=== PATIENT | female | born 1955 | race Caucasian/White ===

== ENCOUNTER 2020-06-27 06:39 | Outpatient (CLI) | payer MEDICARE ==
[2020-06-27 09:47] LABS: Hemoglobin 12.4 g/dL (12.0-16.0); Mean Corpuscular HGB CONC 31.6 G/DL (32.0-36.0); Mean Corpuscular Hemoglobin 28.7 PG (27.0-33.0); Mean Corpuscular Volume 90.7 fl (80.0-100.0); Mean Platelet Volume 11.1 fl (7.4-10.4); Platelet Count 311 10x3/uL (130-400); RBC Distribution Width 14.6 % (11.5-14.5); Red Blood Cell (RBC) Count 4.32 10x6/uL (3.90-5.20); White Blood Cell (WBC) Count 7.8 10x3/uL (4.5-11.0)
[2020-06-27 10:07] LABS: PTT 29.1 sec (22.0-33.0); Prothrombin Time 10.9 sec (9.5-12.1)
[2020-06-27 10:21] LABS: Anion Gap 15 mmol/L (10-20); BUN (Urea Nitrogen) 26 mg/dL (9.8-20.1); Calc. Creatinine Clearance 0 mL/min (70-130); Calcium 9.5 mg/dL (7.8-10.44); Carbon Dioxide 25 mmol/L (23-31); Chloride 106 mmol/L (98-107); Glucose 165 mg/dL (80-115); Sodium 142 mmol/L (136-145)
[2020-06-27 22:09] LABS: SARS-CoV-2 MS2 Positive; SARS-CoV-2 N Gene Negative; SARS-CoV-2 S Gene Negative; SARS-CoV-2 by NAA Not Detected (NotDetected); SARS-CoV-2 orf1ab Negative
== END 2020-06-27 06:40 | disposition home or self-care (01) ==
LOC: LABBT 06:39
PROVIDERS: ATTEND Urology
DX: Z01.818 Encounter for other preprocedural examination (principal); Z20.822 Contact with and (suspected) exposure to COVID-19; N20.2 Calculus of kidney with calculus of ureter; R82.994 Hypercalciuria; E21.0 Primary hyperparathyroidism; N39.46 Mixed incontinence; E11.9 Type 2 diabetes mellitus without complications
CPT/HCPCS: 80048; 85027; 85610; 85730; U0003; 87635

== ENCOUNTER 2020-06-29 06:07 | Day surgery (SDC) | payer MEDICARE ==
[2020-06-22 14:01] VITALS: BMI 35.4
[2020-06-29] MEDS ORDERED: Levofloxacin 500 mg/D5W 100 ml Premix Bag ONE (07:11)
--- NOTE | 2020-06-29 07:39 | RAD ---
Abdomen one view HISTORY: Renal stone. Preop. FINDINGS: No comparison. Visualized bowel gas pattern is nonspecific. Far left abdomen and the hemidiaphragms are excluded fro m the image. Double pigtail stent projects over the course of the left ureter. An oval calcification at the expect ed location of the left ureteropelvic junction, immediately medial to the stent at this location, is 1.1 cm length by 0.6 cm width (not allowing for magnification). Tiny grouped calcifications overly ing the inferior pole of the left renal shadow likely representing additional renal calculi. Phlebolith noted within the left lower pelvis. IMPRESSION : Left ureteral stent. Left renal calculi.
[2020-06-29] MEDS ORDERED: Fentanyl 100 MCG/2 ML VIAL ONE (08:16)
[2020-06-29] MEDS ORDERED: Iothalamate Meglumine 60% 50 ML VIAL FS ONE (08:35)
[2020-06-29] MEDS ORDERED: Lidocaine 1% PF 5 ML VIAL ONE (09:14)
[2020-06-29] MEDS ORDERED: Ketorolac Tromethamine 30 MG/ML VIAL ONE (09:14)
[2020-06-29] MEDS ORDERED: Ondansetron PF 4 MG/2 ML Vial ONE (09:14)
[2020-06-29] MEDS ORDERED: ePHEDrine 50 MG/ML VIAL ONE (09:14)
[2020-06-29] MEDS ORDERED: PROPOFOL 200 MG/20 ML VIAL ONE (09:14)
[2020-06-29] MEDS ORDERED: PHENYLEPHRINE-NS 100 MCG/ML 10 ML SYRINGE ONE (09:14)
[2020-06-29] MEDS ORDERED: Phenazopyridine HCl 100 MG TAB ONE (09:49)
[2020-06-29] MEDS ORDERED: Oxybutynin 5 MG TAB ONE (09:49)
--- NOTE | 2020-06-29 10:15 | OP ---
DATE OF PROCEDURE: 06/29/2020 PCP: Dr. Trudi Paz. PREOPERATIVE DIAGNOSIS: 65-year-old female with 9 x 7 mm left proximal ureteral calculi, nonobstructing left lower pole renal calculi x2, dimensions measuring about 6-8 mm, right punctate renal lithiasis. POSTOPERATIVE DIAGNOSIS: 65-year-old female with 9 x 7 mm left proximal ureteral calculi, nonobstructing left lower pole renal calculi x2, dimensions measuring about 6-8 mm, right punctate renal lithiasis. PROCEDURE PERFORMED: Cystoscopy, left ureteroscopy, laser lithotripsy, basket extraction, stent exchange, 6 x 28, ureteroscopy, retrograde pyelogram. ANESTHESIA: LMA general. COMPLICATIONS: None apparent. SPECIMEN: Stone fragments for chemical analysis. INTRAOPERATIVE FINDINGS: Left proximal UPJ stone with stone nidus adherent to the ureteropelvic mucosa with some bullous edema. Left lower pole calculi multiple, most of which are punctate, the largest about 4-5 mm. INDICATIONS FOR PROCEDURE AND HISTORY: Ms. Agustin is a pleasant 65-year-old female whom I seen at [facility] as she presented with left flank pain. CT demonstrated a large 9 mm proximal ureteral calculi and she underwent stent placement. She presents today for definitive treatment. Risks and complication of the procedure have been discussed with her in detail including but not limited to, bleeding, pain, infection, injury to adjacent organs, [id number]-raurot injury, stricture formation. All questions answered to her satisfaction. She desired to proceed. PROCEDURE IN DETAIL: The patient was taken to the operating room, placed in a dorsal lithotomy position with the genital area prepped and draped in the usual surgical sterile fashion. Bilateral GHAZAL hose, SCDs and broad-spectrum antibiotics were provided. A 22-Chilean cystoscope was utilized for cystoscopy and a previously placed ureteral stent was visualized and removed to the level of the meatus. On preoperative KUB, the stone nidus is easily visualized. Large left renal pelvic UPJ stone, and left lower pole stone nidus. The stone was removed to the level of the meatus and a 0.035 Sensor wire was placed into the left upper pole. At this time, a 10-Chilean dual-lumen access sheath was placed. There was some resistance in the lower pelvis where she does have a large ovarian cyst at this site, however, we were able to pass a dual-lumen to the level of the proximal ureter atraumatically. A retrograde pyelogram was performed conforming the stone in place, and we passed a second safety wire 0.035 Super Stiff. There was some resistance at the level of the stone, therefore retrograde pyelogram was performed to opacify with no evidence of extravasation and the wire was carefully negotiated into the left upper pole. At this time, a 12 x 14-Chilean navigator was passed to the level of the proximal ureter just abutting the stone without difficulty. Using 273 micron laser fiber, ball- tip at dust setting variable from 0.3-1.0 joules, we laser lithotripsied the stone into multiple fragments. Using a Zero Tip Nitinol basket, we basket extracted the stone fragments atraumatically. I surveyed the left lower pole, there were stone nidus. There were about 4-5 punctate renal lithiasis, largest of which was about 4 or 5 mm. I laser lithotripsied the large stone burden, but however, the lower pole stone burden was somewhat challenging to treat due to acute infundibular angle. The basket extraction was utilized to remove the larger stone nidus. What remained in the collecting system after the procedure is dust-like stone debris, which I anticipate she will pass without any issues. At this time, we surveyed the ureter demonstrating no evidence of ureteral mucosal injury of concern, no stone nidus in the ureter was noted. The navigator was completely removed and a 6 x 28 double- J ureteral stent was placed without difficulty. All wires were removed Bladder was completely emptied and she tolerated the procedure well and transported to the recovery room in stable condition. I will see her next for cysto, stent pull under local. Job ID: [id number] [facility]
--- NOTE | 2020-06-29 10:22 | RAD ---
EXAM: XR IVP Retrograde PROVIDED CLINICAL HISTORY: Left ureteral calculus. Left ureteral stent in place. COMPARISON: 12/12/2019 at 0704 hours. FINDINGS/IMPRESSION: 29 intraoperative fluoroscopic images from a retrograde urogram are provided. Initial image demonstra dunia a left ureteral stent in place with a calculus overlying the proximal aspect of the left ureteral stent. Subsequent imaging demonstrates removal the renal stent with placement of a guide wir e and guide catheter. Final images demonstrate resolution of previously seen ureteral calculus related to interval treatment with replacement of a left ureteral stent. Correlation with intraoperat hannah findings is recommended.
== END 2020-06-29 13:15 | disposition home or self-care (01) ==
LOC: SDC 06:07
PROVIDERS: ATTEND Urology
PROC: 0TC48ZZ Extirpation of Matter from Left Kidney Pelvis, Via Natural or Artificial Opening Endoscopic (ICD-10-PCS; principal; 2020-06-29)
PROC: 0TC78ZZ Extirpation of Matter from Left Ureter, Via Natural or Artificial Opening Endoscopic (ICD-10-PCS; 2020-06-29)
PROC: 0T778DZ Dilation of Left Ureter with Intraluminal Device, Via Natural or Artificial Opening Endoscopic (ICD-10-PCS; 2020-06-29)
DX: N20.2 Calculus of kidney with calculus of ureter (principal); N39.46 Mixed incontinence; E11.9 Type 2 diabetes mellitus without complications; I10 Essential (primary) hypertension; E78.5 Hyperlipidemia, unspecified; K57.30 Diverticulosis of large intestine without perforation or abscess without bleeding; N83.209 Unspecified ovarian cyst, unspecified side; G47.30 Sleep apnea, unspecified; Z79.4 Long term (current) use of insulin; Z79.82 Long term (current) use of aspirin; Z79.899 Other long term (current) drug therapy; Z88.8 Allergy status to other drugs, medicaments and biological substances
CPT/HCPCS: 74018; 74420; 82365; 88300; J1885; J1956; J2405; J2704; J3010; J3490